=== PATIENT | female | born 1965 | race Caucasian/White ===

== ENCOUNTER 2016-05-24 21:44 | Inpatient (IN) | payer BC ==
[~2016-05-24] VITALS: Ht 149.9 cm; Wt 46.4 kg
[2016-05-24] MEDS ORDERED: OPTIRAY 350 100 ML VIAL HMH IV ONE (21:45)
[2016-05-25] VITALS (7 sets, daily range): BP systolic 102–125; RESP 14–26; TEMP 97.9–99; Ht 149.9 cm; Wt 46.4 kg
[2016-05-25] MEDS ORDERED: NEB-ALBUTEROL 2.5 MG/3 ML INH ONE (00:58)
[2016-05-25] MEDS ORDERED: DUONEB INH ONE ×3 (00:58→13:50)
[2016-05-25] MEDS ORDERED: ACETAMINOPHEN 325 MG TAB ONE (03:04)
[2016-05-25] MEDS ORDERED: AZITHROMYCIN 500 MG VIAL IV ONE (03:33)
[2016-05-25] MEDS ORDERED: SODIUM CHLORIDE 0.9% 500 ML IV ONE (03:34)
[2016-05-25] MEDS ORDERED: CEFTRIAXONE 1 GM VIAL ONE (03:34)
[2016-05-25] MEDS ORDERED: SALINE FLUSH 10 ML FLUSH PRN (03:50)
[2016-05-25] MEDS: DUONEB INH SCH ×4 (05:49→22:33)
[2016-05-25] MEDS ORDERED: METHYLPRED SOD SUCC 40 MG VIAL ONE (08:59)
[2016-05-25] MEDS ORDERED: ENOXAPARIN 60 MG/0.6 ML SYR SUBQ ONE (09:01)
[2016-05-25] MEDS: METHYLPRED SOD SUCC 40 MG VIAL IV SCH ×2 (11:17→14:38)
[2016-05-25] MEDS: ENOXAPARIN 40 MG/0.4 ML SYR SUBQ SCH (11:17)
[2016-05-25] MEDS ORDERED: ONDANSETRON 4 MG VIAL ONE (11:43)
[2016-05-25] MEDS: SALINE FLUSH 10 ML FLUSH SCH ×2 (11:46→19:51)
[2016-05-25] MEDS: SODIUM CHLORIDE 0.9% FLUSH BAG 500 ML IV SCH (13:56)
[2016-05-25] MEDS ORDERED: KETAMINE INJ 50 MG/ML VIAL IV ONE (14:11)
[2016-05-25] MEDS ORDERED: MIDAZOLAM 2 MG/2 ML INJ IV ONE (14:11)
[2016-05-25] MEDS ORDERED: LIDOCAINE 2% SYR 5 ML IV ONE (14:11)
[2016-05-25] MEDS ORDERED: PROPOFOL 50ML PER ML IV ONE (14:11)
[2016-05-25] MEDS: NICOTINE 21 MG/24 HR TRANSDERM SCH (14:38)
[2016-05-25] MEDS: GABAPENTIN 300 MG CAP PO SCH ×2 (14:39→21:27)
[2016-05-25] MEDS ORDERED: PNEUMO VAC 25 MCG/0.5 ML VL IM.VACC ONE (15:30)
[2016-05-25] MEDS: ONDANSETRON 4 MG VIAL IV PRN (19:50)
[2016-05-25] MEDS: PRAVASTATIN 20 MG TAB PO SCH (21:27)
[2016-05-25] MEDS: ALPRAZOLAM 1 MG TAB PO SCH (21:27)
[2016-05-25] MEDS: ATENOLOL 25 MG TAB PO SCH (21:27)
[2016-05-26] VITALS (7 sets, daily range): BP systolic 91–130; RESP 16–20; TEMP 98.2–99.3
[2016-05-26] MEDS: METHYLPRED SOD SUCC 40 MG VIAL IV SCH ×2 (00:33→08:41)
[2016-05-26] MEDS: ONDANSETRON 4 MG VIAL IV PRN (03:21)
[2016-05-26] MEDS: NEB-ALBUTEROL 2.5 MG/3 ML INH PRN (03:38)
[2016-05-26] MEDS: SODIUM CHLORIDE 0.9% FLUSH BAG 500 ML IV SCH (06:24)
[2016-05-26] MEDS: DUONEB INH SCH ×4 (07:08→22:52)
[2016-05-26] MEDS: NICOTINE 21 MG/24 HR TRANSDERM SCH (08:34)
[2016-05-26] MEDS: ATENOLOL 25 MG TAB PO SCH ×2 (08:37→21:07)
[2016-05-26] MEDS: ENOXAPARIN 40 MG/0.4 ML SYR SUBQ SCH (08:37)
[2016-05-26] MEDS: GABAPENTIN 300 MG CAP PO SCH ×3 (08:37→21:07)
[2016-05-26] MEDS: ALPRAZOLAM 1 MG TAB PO SCH ×2 (08:37→21:07)
[2016-05-26] MEDS: CEFTRIAXONE 1 GM in SODIUM CHLORIDE 0.9% 50 ML IV SCH (08:38)
[2016-05-26] MEDS: AZITHROMYCIN 250 MG in SODIUM CHLORIDE 0.9% 250 ML IV SCH (08:38)
[2016-05-26] MEDS: SALINE FLUSH 10 ML FLUSH SCH ×2 (08:39→21:07)
[2016-05-26] MEDS ORDERED: PREDNISONE 20 MG TAB PO ONE (11:45)
[2016-05-26] MEDS: NEB-BROVANA 15 MCG/2 ML INH SCH ×2 (12:46→19:05)
[2016-05-26] MEDS: NEB-BUDESONIDE 0.5 MG INH SCH ×2 (12:46→19:05)
[2016-05-26] MEDS: ACETAMINOPHEN 325 MG TAB PO PRN (14:21)
[2016-05-26] MEDS ORDERED: MISSING DOSE XX ONE ×2 (16:20→19:45)
[2016-05-26] MEDS: PRAVASTATIN 20 MG TAB PO SCH (21:06)
[2016-05-26] MEDS: FAMOTIDINE 20 MG TAB PO SCH (21:06)
[2016-05-27] VITALS (8 sets, daily range): BP systolic 96–143; RESP 16–20; TEMP 96.3–98.5
[2016-05-27] MEDS: DUONEB INH SCH ×4 (06:59→22:50)
[2016-05-27] MEDS: NEB-BROVANA 15 MCG/2 ML INH SCH ×2 (06:59→17:09)
[2016-05-27] MEDS: NEB-BUDESONIDE 0.5 MG INH SCH ×2 (06:59→17:09)
[2016-05-27] MEDS: SODIUM CHLORIDE 0.9% FLUSH BAG 500 ML IV SCH (07:21)
[2016-05-27] MEDS: FAMOTIDINE 20 MG TAB PO SCH ×2 (08:45→20:10)
[2016-05-27] MEDS: GABAPENTIN 300 MG CAP PO SCH ×3 (08:45→20:10)
[2016-05-27] MEDS: SALINE FLUSH 10 ML FLUSH SCH ×2 (08:45→20:11)
[2016-05-27] MEDS: PREDNISONE 20 MG TAB PO SCH (08:45)
[2016-05-27] MEDS: AZITHROMYCIN 250 MG in SODIUM CHLORIDE 0.9% 250 ML IV SCH (08:45)
[2016-05-27] MEDS: CEFTRIAXONE 1 GM in SODIUM CHLORIDE 0.9% 50 ML IV SCH (08:45)
[2016-05-27] MEDS: ALPRAZOLAM 1 MG TAB PO SCH ×2 (08:46→20:10)
[2016-05-27] MEDS: ENOXAPARIN 40 MG/0.4 ML SYR SUBQ SCH (08:46)
[2016-05-27] MEDS: ATENOLOL 25 MG TAB PO SCH ×2 (08:46→20:10)
[2016-05-27] MEDS: NICOTINE 21 MG/24 HR TRANSDERM SCH (08:49)
[2016-05-27] MEDS ORDERED: LOPERAMIDE 2 MG CAPSULE PO PRN (12:05)
[2016-05-27] MEDS: NEB-ALBUTEROL 2.5 MG/3 ML INH PRN (17:09)
[2016-05-27] MEDS: NEB-NACL 3% 4 ML NEBU INH SCH ×2 (17:09→22:49)
[2016-05-27] MEDS: KETOROLAC 15 MG/ML VIAL IV PRN (18:57)
[2016-05-27] MEDS: SACCHA BOULARDII 250MG CAP PO SCH (20:10)
[2016-05-27] MEDS: GUAIFENESIN ER 600 MG TABCR PO SCH (20:10)
[2016-05-27] MEDS: PRAVASTATIN 20 MG TAB PO SCH (20:10)
[2016-05-28 04:00] VITALS: BP_SYST 142; RESP 16; TEMP 97.7
[2016-05-28] MEDS: NEB-NACL 3% 4 ML NEBU INH SCH ×4 (06:18→22:25)
[2016-05-28] MEDS: DUONEB INH SCH ×5 (06:18→22:25)
[2016-05-28] MEDS: NEB-BUDESONIDE 0.5 MG INH SCH ×2 (06:18→19:50)
[2016-05-28] MEDS: NEB-BROVANA 15 MCG/2 ML INH SCH ×2 (06:18→19:50)
[2016-05-28] MEDS: SODIUM CHLORIDE 0.9% FLUSH BAG 500 ML IV SCH (06:24)
[2016-05-28] MEDS: ONDANSETRON 4 MG VIAL IV PRN (07:02)
[2016-05-28] MEDS: KETOROLAC 15 MG/ML VIAL IV PRN ×3 (07:04→20:11)
[2016-05-28 07:21] VITALS: BP_SYST 137; RESP 16; TEMP 98.2
[2016-05-28] MEDS ORDERED: MISSING DOSE XX ONE (08:20)
[2016-05-28] MEDS: NICOTINE 21 MG/24 HR TRANSDERM SCH (08:21)
[2016-05-28] MEDS: SACCHA BOULARDII 250MG CAP PO SCH ×2 (08:21→20:10)
[2016-05-28] MEDS: ALPRAZOLAM 1 MG TAB PO SCH ×2 (08:22→20:10)
[2016-05-28] MEDS: PREDNISONE 20 MG TAB PO SCH (08:22)
[2016-05-28] MEDS: ATENOLOL 25 MG TAB PO SCH ×2 (08:22→20:10)
[2016-05-28] MEDS: GABAPENTIN 300 MG CAP PO SCH ×3 (08:22→20:10)
[2016-05-28] MEDS: GUAIFENESIN ER 600 MG TABCR PO SCH ×2 (08:22→20:10)
[2016-05-28] MEDS: ENOXAPARIN 40 MG/0.4 ML SYR SUBQ SCH (08:23)
[2016-05-28] MEDS: SALINE FLUSH 10 ML FLUSH SCH ×2 (08:31→20:17)
[2016-05-28] MEDS: CEFTRIAXONE 1 GM in SODIUM CHLORIDE 0.9% 50 ML IV SCH (09:50)
[2016-05-28 11:06] VITALS: BP_SYST 122; RESP 16; TEMP 98.5
[2016-05-28 16:09] VITALS: BP_SYST 134; RESP 20; TEMP 97.9
[2016-05-28 19:27] VITALS: BP_SYST 125; RESP 16; TEMP 97.2
[2016-05-28] MEDS: FAMOTIDINE 20 MG TAB PO SCH (20:10)
[2016-05-28] MEDS: PRAVASTATIN 20 MG TAB PO SCH (20:10)
[2016-05-28 23:06] VITALS: BP_SYST 116; RESP 16; TEMP 98.6
[2016-05-29] VITALS (10 sets, daily range): BP systolic 122–145; RESP 12–20; TEMP 97.4–98.3
[2016-05-29] MEDS: KETOROLAC 15 MG/ML VIAL IV PRN ×4 (02:33→20:58)
[2016-05-29] MEDS: SODIUM CHLORIDE 0.9% FLUSH BAG 500 ML IV SCH (06:17)
[2016-05-29] MEDS: NEB-BROVANA 15 MCG/2 ML INH SCH ×2 (07:05→18:10)
[2016-05-29] MEDS: NEB-NACL 3% 4 ML NEBU INH SCH ×6 (07:05→22:30)
[2016-05-29] MEDS: NEB-BUDESONIDE 0.5 MG INH SCH ×2 (07:05→18:10)
[2016-05-29] MEDS: DUONEB INH SCH ×5 (07:05→22:29)
[2016-05-29] MEDS: SACCHA BOULARDII 250MG CAP PO SCH ×2 (08:34→20:57)
[2016-05-29] MEDS: ATENOLOL 25 MG TAB PO SCH ×2 (08:34→20:56)
[2016-05-29] MEDS: PREDNISONE 20 MG TAB PO SCH (08:34)
[2016-05-29] MEDS: GUAIFENESIN ER 600 MG TABCR PO SCH ×2 (08:34→20:56)
[2016-05-29] MEDS: GABAPENTIN 300 MG CAP PO SCH ×3 (08:34→20:56)
[2016-05-29] MEDS: SALINE FLUSH 10 ML FLUSH SCH ×2 (08:34→20:57)
[2016-05-29] MEDS: NICOTINE 21 MG/24 HR TRANSDERM SCH (08:35)
[2016-05-29] MEDS: ENOXAPARIN 40 MG/0.4 ML SYR SUBQ SCH (08:36)
[2016-05-29] MEDS: CEFTRIAXONE 1 GM in SODIUM CHLORIDE 0.9% 50 ML IV SCH (08:44)
[2016-05-29] MEDS: ALPRAZOLAM 1 MG TAB PO SCH ×2 (08:44→21:05)
[2016-05-29] MEDS: FAMOTIDINE 20 MG TAB PO SCH (20:56)
[2016-05-29] MEDS: PRAVASTATIN 20 MG TAB PO SCH (20:56)
[2016-05-30] VITALS (8 sets, daily range): BP systolic 122–156; RESP 12–20; TEMP 97.4–98.7
[2016-05-30] MEDS: KETOROLAC 15 MG/ML VIAL IV PRN ×3 (02:51→18:22)
[2016-05-30] MEDS: SODIUM CHLORIDE 0.9% FLUSH BAG 500 ML IV SCH (06:18)
[2016-05-30] MEDS: NEB-NACL 3% 4 ML NEBU INH SCH ×3 (06:30→18:58)
[2016-05-30] MEDS: NEB-BROVANA 15 MCG/2 ML INH SCH ×2 (08:04→18:58)
[2016-05-30] MEDS: NEB-BUDESONIDE 0.5 MG INH SCH ×2 (08:04→18:59)
[2016-05-30] MEDS: DUONEB INH SCH ×4 (08:05→18:59)
[2016-05-30] MEDS: ONDANSETRON 4 MG VIAL IV PRN (08:19)
[2016-05-30] MEDS: CEFTRIAXONE 1 GM in SODIUM CHLORIDE 0.9% 50 ML IV SCH (08:20)
[2016-05-30] MEDS: SACCHA BOULARDII 250MG CAP PO SCH ×2 (08:20→21:10)
[2016-05-30] MEDS: GABAPENTIN 300 MG CAP PO SCH ×3 (08:20→21:10)
[2016-05-30] MEDS: ALPRAZOLAM 1 MG TAB PO SCH ×2 (08:20→21:14)
[2016-05-30] MEDS: SALINE FLUSH 10 ML FLUSH SCH ×2 (08:20→21:15)
[2016-05-30] MEDS: ATENOLOL 25 MG TAB PO SCH ×2 (08:20→21:10)
[2016-05-30] MEDS: PREDNISONE 20 MG TAB PO SCH (08:21)
[2016-05-30] MEDS: GUAIFENESIN ER 600 MG TABCR PO SCH ×2 (08:21→21:10)
[2016-05-30] MEDS: ENOXAPARIN 40 MG/0.4 ML SYR SUBQ SCH (08:21)
[2016-05-30] MEDS: NICOTINE 21 MG/24 HR TRANSDERM SCH (08:22)
[2016-05-30] MEDS ORDERED: MISSING DOSE XX ONE ×2 (08:30→20:55)
[2016-05-30] MEDS ORDERED: NEB-NACL 3% 4 ML NEBU INH ONE (10:53)
[2016-05-30] MEDS ORDERED: METHYLPRED SOD SUCC 125 MG/2 ML VIAL IV ONE (13:40)
[2016-05-30] MEDS: ACETAMINOPHEN 325 MG TAB PO PRN (13:43)
[2016-05-30] MEDS: PRAVASTATIN 20 MG TAB PO SCH (21:10)
[2016-05-30] MEDS: FAMOTIDINE 20 MG TAB PO SCH (21:10)
[2016-05-30] MEDS: METHYLPRED SOD SUCC 125 MG/2 ML VIAL IV SCH (21:11)
[2016-05-31] VITALS (11 sets, daily range): BP systolic 134–160; RESP 16–20; TEMP 98.2–98.7
[2016-05-31] MEDS: DUONEB INH SCH ×6 (00:08→23:05)
[2016-05-31] MEDS: NEB-NACL 3% 4 ML NEBU INH SCH ×5 (00:08→23:05)
[2016-05-31] MEDS: KETOROLAC 15 MG/ML VIAL IV PRN ×4 (00:25→21:36)
[2016-05-31] MEDS: SODIUM CHLORIDE 0.9% FLUSH BAG 500 ML IV SCH (05:19)
[2016-05-31] MEDS ORDERED: MISSING DOSE XX ONE (07:40)
[2016-05-31] MEDS: ATENOLOL 25 MG TAB PO SCH ×2 (08:16→21:31)
[2016-05-31] MEDS: GUAIFENESIN ER 600 MG TABCR PO SCH ×2 (08:16→21:31)
[2016-05-31] MEDS: GABAPENTIN 300 MG CAP PO SCH ×3 (08:16→21:31)
[2016-05-31] MEDS: CEFTRIAXONE 1 GM in SODIUM CHLORIDE 0.9% 50 ML IV SCH (08:16)
[2016-05-31] MEDS: METHYLPRED SOD SUCC 125 MG/2 ML VIAL IV SCH ×2 (08:16→21:32)
[2016-05-31] MEDS: SACCHA BOULARDII 250MG CAP PO SCH ×2 (08:16→21:31)
[2016-05-31] MEDS: ENOXAPARIN 40 MG/0.4 ML SYR SUBQ SCH (08:17)
[2016-05-31] MEDS: NEB-BUDESONIDE 0.5 MG INH SCH ×2 (08:22→18:29)
[2016-05-31] MEDS: NEB-BROVANA 15 MCG/2 ML INH SCH ×2 (08:22→18:29)
[2016-05-31] MEDS: SALINE FLUSH 10 ML FLUSH SCH ×2 (08:27→21:32)
[2016-05-31] MEDS: ALPRAZOLAM 1 MG TAB PO SCH ×2 (08:27→21:31)
[2016-05-31] MEDS: NICOTINE 21 MG/24 HR TRANSDERM SCH (08:28)
[2016-05-31] MEDS: ACETAMINOPHEN 325 MG TAB PO PRN (13:39)
[2016-05-31] MEDS ORDERED: MORPHINE 2 MG/ML SYR IV PRN (14:55)
[2016-05-31] MEDS: NYSTATIN 500,000 UNITS/5 ML SUSP SWISH.SWAL SCH ×3 (16:15→21:32)
[2016-05-31] MEDS: PRAVASTATIN 20 MG TAB PO SCH (21:31)
[2016-05-31] MEDS: FAMOTIDINE 20 MG TAB PO SCH (21:32)
[2016-06-01 03:03] VITALS: BP_SYST 134; RESP 20; TEMP 98.7
[2016-06-01] MEDS: KETOROLAC 15 MG/ML VIAL IV PRN ×2 (03:41→14:04)
[2016-06-01] MEDS: SODIUM CHLORIDE 0.9% FLUSH BAG 500 ML IV SCH (05:22)
[2016-06-01] MEDS: NEB-BROVANA 15 MCG/2 ML INH SCH ×2 (06:10→19:13)
[2016-06-01] MEDS: NEB-NACL 3% 4 ML NEBU INH SCH ×4 (06:11→23:29)
[2016-06-01] MEDS: NEB-BUDESONIDE 0.5 MG INH SCH ×2 (06:11→19:13)
[2016-06-01] MEDS: DUONEB INH SCH ×5 (06:11→23:28)
[2016-06-01 07:15] VITALS: BP_SYST 150; RESP 20; TEMP 98.3
[2016-06-01] MEDS: METHYLPRED SOD SUCC 125 MG/2 ML VIAL IV SCH ×2 (08:12→20:10)
[2016-06-01] MEDS: SACCHA BOULARDII 250MG CAP PO SCH ×2 (08:15→20:12)
[2016-06-01] MEDS: GABAPENTIN 300 MG CAP PO SCH ×3 (08:15→20:11)
[2016-06-01] MEDS: GUAIFENESIN ER 600 MG TABCR PO SCH (08:15)
[2016-06-01] MEDS: ALPRAZOLAM 1 MG TAB PO SCH ×2 (08:15→20:12)
[2016-06-01] MEDS: ATENOLOL 25 MG TAB PO SCH ×2 (08:16→20:12)
[2016-06-01] MEDS: NICOTINE 21 MG/24 HR TRANSDERM SCH (08:18)
[2016-06-01] MEDS: SALINE FLUSH 10 ML FLUSH SCH ×2 (10:50→20:11)
[2016-06-01] MEDS: ENOXAPARIN 40 MG/0.4 ML SYR SUBQ SCH (10:50)
[2016-06-01] MEDS: NYSTATIN 500,000 UNITS/5 ML SUSP SWISH.SWAL SCH ×4 (10:51→20:11)
[2016-06-01 11:12] VITALS: BP_SYST 131; RESP 20; TEMP 98.3
[2016-06-01] MEDS ORDERED: MISSING DOSE XX ONE ×2 (12:55→18:05)
[2016-06-01 15:47] VITALS: BP_SYST 134; RESP 20; TEMP 98.6
[2016-06-01] MEDS: FLUCONAZOLE 150 MG TAB PO SCH (17:16)
[2016-06-01 20:06] VITALS: BP_SYST 153; RESP 18; TEMP 98.4
[2016-06-01] MEDS: PRAVASTATIN 20 MG TAB PO SCH (20:12)
[2016-06-01] MEDS: FAMOTIDINE 20 MG TAB PO SCH (20:12)
[2016-06-01 22:55] VITALS: BP_SYST 150; RESP 16; TEMP 97.9
[2016-06-02 02:54] VITALS: BP_SYST 151; RESP 16; TEMP 98.5
[2016-06-02] MEDS: SODIUM CHLORIDE 0.9% FLUSH BAG 500 ML IV SCH (06:13)
[2016-06-02] MEDS: NEB-BROVANA 15 MCG/2 ML INH SCH ×2 (06:32→18:25)
[2016-06-02] MEDS: DUONEB INH SCH ×5 (06:32→22:34)
[2016-06-02] MEDS: NEB-NACL 3% 4 ML NEBU INH SCH ×4 (06:33→22:34)
[2016-06-02] MEDS: NEB-BUDESONIDE 0.5 MG INH SCH ×2 (06:33→18:25)
[2016-06-02 07:17] VITALS: BP_SYST 152; RESP 18; TEMP 98.2
[2016-06-02] MEDS: NYSTATIN 500,000 UNITS/5 ML SUSP SWISH.SWAL SCH ×4 (08:20→21:19)
[2016-06-02] MEDS: ALPRAZOLAM 1 MG TAB PO SCH ×2 (08:20→21:19)
[2016-06-02] MEDS: GABAPENTIN 300 MG CAP PO SCH ×3 (08:20→21:19)
[2016-06-02] MEDS: METHYLPRED SOD SUCC 125 MG/2 ML VIAL IV SCH (08:20)
[2016-06-02] MEDS: SACCHA BOULARDII 250MG CAP PO SCH ×2 (08:20→21:19)
[2016-06-02] MEDS: ATENOLOL 25 MG TAB PO SCH ×2 (08:20→21:19)
[2016-06-02] MEDS: SALINE FLUSH 10 ML FLUSH SCH ×2 (08:21→21:21)
[2016-06-02] MEDS: FLUCONAZOLE 150 MG TAB PO SCH (08:22)
[2016-06-02] MEDS: NICOTINE 21 MG/24 HR TRANSDERM SCH (08:22)
[2016-06-02] MEDS: ENOXAPARIN 40 MG/0.4 ML SYR SUBQ SCH (08:22)
[2016-06-02 11:06] VITALS: BP_SYST 153; RESP 18; TEMP 98
[2016-06-02] MEDS: ACETAMINOPHEN 325 MG TAB PO PRN (14:06)
[2016-06-02 14:55] VITALS: BP_SYST 151; RESP 18; TEMP 97.9
[2016-06-02 19:22] VITALS: BP_SYST 156; RESP 17; TEMP 98.1
[2016-06-02] MEDS ORDERED: METHYLPRED SOD SUCC 125 MG/2 ML VIAL IV SCH (20:00)
[2016-06-02] MEDS: FAMOTIDINE 20 MG TAB PO SCH (21:19)
[2016-06-02] MEDS: PRAVASTATIN 20 MG TAB PO SCH (21:19)
[2016-06-02 22:41] VITALS: BP_SYST 156; RESP 17; TEMP 97.9
[2016-06-03] VITALS (10 sets, daily range): BP systolic 146–178; RESP 12–16; TEMP 97.7–98.3
[2016-06-03] MEDS: SODIUM CHLORIDE 0.9% FLUSH BAG 500 ML IV SCH (05:35)
[2016-06-03] MEDS: NEB-BUDESONIDE 0.5 MG INH SCH ×2 (06:55→19:47)
[2016-06-03] MEDS: NEB-BROVANA 15 MCG/2 ML INH SCH ×2 (06:55→19:47)
[2016-06-03] MEDS: DUONEB INH SCH ×5 (06:56→23:22)
[2016-06-03] MEDS: NEB-NACL 3% 4 ML NEBU INH SCH ×4 (06:56→23:22)
[2016-06-03] MEDS: SALINE FLUSH 10 ML FLUSH SCH ×2 (08:00→20:40)
[2016-06-03] MEDS: NICOTINE 21 MG/24 HR TRANSDERM SCH (08:17)
[2016-06-03] MEDS: NYSTATIN 500,000 UNITS/5 ML SUSP SWISH.SWAL SCH ×4 (08:17→20:39)
[2016-06-03] MEDS: GABAPENTIN 300 MG CAP PO SCH ×3 (08:18→20:39)
[2016-06-03] MEDS: ALPRAZOLAM 1 MG TAB PO SCH ×2 (08:18→20:39)
[2016-06-03] MEDS: SACCHA BOULARDII 250MG CAP PO SCH ×2 (08:18→20:39)
[2016-06-03] MEDS: FLUCONAZOLE 150 MG TAB PO SCH (08:18)
[2016-06-03] MEDS: ATENOLOL 25 MG TAB PO SCH ×2 (08:18→20:39)
[2016-06-03] MEDS: PREDNISONE 20 MG TAB PO SCH (08:18)
[2016-06-03] MEDS: ENOXAPARIN 40 MG/0.4 ML SYR SUBQ SCH (08:19)
[2016-06-03] MEDS ORDERED: PHARMACY TO DOSE LEVAQUIN IV SCH (12:55)
[2016-06-03] MEDS: LEVOFLOXACIN 750 MG/150 ML 150 ML IV SCH (14:32)
[2016-06-03] MEDS: PRAVASTATIN 20 MG TAB PO SCH (20:39)
[2016-06-03] MEDS: FAMOTIDINE 20 MG TAB PO SCH (20:39)
[2016-06-04] VITALS (7 sets, daily range): BP systolic 124–142; RESP 16–20; TEMP 97.2–98.5
[2016-06-04] MEDS: SODIUM CHLORIDE 0.9% FLUSH BAG 500 ML IV SCH (05:21)
[2016-06-04] MEDS: NEB-NACL 3% 4 ML NEBU INH SCH ×4 (06:32→22:42)
[2016-06-04] MEDS: NEB-BROVANA 15 MCG/2 ML INH SCH ×2 (06:32→19:03)
[2016-06-04] MEDS: NEB-BUDESONIDE 0.5 MG INH SCH ×2 (06:32→19:03)
[2016-06-04] MEDS: DUONEB INH SCH ×5 (06:32→22:42)
[2016-06-04] MEDS: NYSTATIN 500,000 UNITS/5 ML SUSP SWISH.SWAL SCH ×4 (08:42→21:00)
[2016-06-04] MEDS: FLUCONAZOLE 150 MG TAB PO SCH (08:43)
[2016-06-04] MEDS: LEVOFLOXACIN 750 MG/150 ML 150 ML IV SCH (08:43)
[2016-06-04] MEDS: SALINE FLUSH 10 ML FLUSH SCH ×2 (08:43→20:58)
[2016-06-04] MEDS: NICOTINE 21 MG/24 HR TRANSDERM SCH (08:43)
[2016-06-04] MEDS: PREDNISONE 20 MG TAB PO SCH (08:44)
[2016-06-04] MEDS: ALPRAZOLAM 1 MG TAB PO SCH (08:44)
[2016-06-04] MEDS: GABAPENTIN 300 MG CAP PO SCH ×3 (08:44→20:58)
[2016-06-04] MEDS: ATENOLOL 25 MG TAB PO SCH ×2 (08:44→20:58)
[2016-06-04] MEDS: ENOXAPARIN 40 MG/0.4 ML SYR SUBQ SCH (08:44)
[2016-06-04] MEDS: SACCHA BOULARDII 250MG CAP PO SCH ×2 (08:44→20:58)
[2016-06-04] MEDS: LORAZEPAM 2 MG/ML VIAL IV PRN ×2 (14:59→18:57)
[2016-06-04] MEDS: PRAVASTATIN 20 MG TAB PO SCH (20:58)
[2016-06-04] MEDS: FAMOTIDINE 20 MG TAB PO SCH (20:58)
[2016-06-05] VITALS (13 sets, daily range): BP systolic 90–148; RESP 16–21; TEMP 97.7–98.6
[2016-06-05] MEDS: LORAZEPAM 2 MG/ML VIAL IV PRN ×5 (04:09→21:30)
[2016-06-05] MEDS: NEB-BROVANA 15 MCG/2 ML INH SCH ×2 (06:36→19:00)
[2016-06-05] MEDS: DUONEB INH SCH ×5 (06:36→22:45)
[2016-06-05] MEDS: NEB-BUDESONIDE 0.5 MG INH SCH ×2 (06:36→19:00)
[2016-06-05] MEDS: NEB-NACL 3% 4 ML NEBU INH SCH ×4 (06:36→22:45)
[2016-06-05] MEDS: SODIUM CHLORIDE 0.9% FLUSH BAG 500 ML IV SCH (06:40)
[2016-06-05] MEDS: ATENOLOL 25 MG TAB PO SCH ×2 (07:32→21:29)
[2016-06-05] MEDS: NICOTINE 21 MG/24 HR TRANSDERM SCH (08:37)
[2016-06-05] MEDS: LEVOFLOXACIN 750 MG/150 ML 150 ML IV SCH (08:37)
[2016-06-05] MEDS: SALINE FLUSH 10 ML FLUSH SCH ×2 (08:38→21:31)
[2016-06-05] MEDS: SACCHA BOULARDII 250MG CAP PO SCH ×2 (09:00→21:29)
[2016-06-05] MEDS: GABAPENTIN 300 MG CAP PO SCH ×3 (09:00→21:29)
[2016-06-05] MEDS: NYSTATIN 500,000 UNITS/5 ML SUSP SWISH.SWAL SCH ×4 (09:00→21:31)
[2016-06-05] MEDS: ENOXAPARIN 40 MG/0.4 ML SYR SUBQ SCH (13:57)
[2016-06-05] MEDS: FLUCONAZOLE 150 MG TAB PO SCH (13:58)
[2016-06-05] MEDS: PREDNISONE 20 MG TAB PO SCH (13:59)
[2016-06-05] MEDS: FAMOTIDINE 20 MG TAB PO SCH (21:29)
[2016-06-05] MEDS: PRAVASTATIN 20 MG TAB PO SCH (21:29)
[2016-06-06] MEDS: LORAZEPAM 2 MG/ML VIAL IV PRN ×4 (01:50→14:53)
[2016-06-06 03:33] VITALS: BP_SYST 143; TEMP 97.7
[2016-06-06 03:34] VITALS: RESP 20
[2016-06-06] MEDS: SODIUM CHLORIDE 0.9% FLUSH BAG 500 ML IV SCH (05:53)
[2016-06-06 07:11] VITALS: BP_SYST 143; RESP 16; TEMP 98.1
[2016-06-06] MEDS: NEB-BROVANA 15 MCG/2 ML INH SCH (07:27)
[2016-06-06] MEDS: NEB-NACL 3% 4 ML NEBU INH SCH ×2 (07:27→11:11)
[2016-06-06] MEDS: DUONEB INH SCH ×3 (07:27→15:01)
[2016-06-06] MEDS: NEB-BUDESONIDE 0.5 MG INH SCH (07:27)
[2016-06-06] MEDS: ENOXAPARIN 40 MG/0.4 ML SYR SUBQ SCH (09:00)
[2016-06-06] MEDS: NICOTINE 21 MG/24 HR TRANSDERM SCH (09:02)
[2016-06-06] MEDS: PREDNISONE 20 MG TAB PO SCH (09:03)
[2016-06-06] MEDS: NYSTATIN 500,000 UNITS/5 ML SUSP SWISH.SWAL SCH ×2 (09:03→12:33)
[2016-06-06] MEDS: GABAPENTIN 300 MG CAP PO SCH ×2 (09:03→15:30)
[2016-06-06] MEDS: SACCHA BOULARDII 250MG CAP PO SCH (09:03)
[2016-06-06] MEDS: ATENOLOL 25 MG TAB PO SCH (09:03)
[2016-06-06] MEDS: FLUCONAZOLE 150 MG TAB PO SCH (09:03)
[2016-06-06] MEDS: SALINE FLUSH 10 ML FLUSH SCH (09:04)
[2016-06-06] MEDS: LEVOFLOXACIN 750 MG/150 ML 150 ML IV SCH (09:19)
[2016-06-06 11:00] VITALS: BP_SYST 125; RESP 18; TEMP 98.3
[2016-06-06] MEDS ORDERED: MISSING DOSE XX ONE (12:30)
[2016-06-06 15:02] VITALS: BP_SYST 125; BP_SYST 127; RESP 18; TEMP 97.3; TEMP 98.3
[2016-06-07] MEDS ORDERED: LEVOFLOXACIN 750 MG TAB PO SCH (09:00)
[2016-06-07] MEDS ORDERED: PREDNISONE 50 MG TAB PO SCH (09:00)
== END 2016-06-06 15:44 | disposition home or self-care (01) | DRG 189 ==
LOC: ENRESERVDT → ENRESERVTM → ER 21:44 → EMR 05-25 03:49 → ENPENDDIS 05-25 03:49 → PCU2 05-25 13:54 → 3NT 05-26 16:25
PROVIDERS: ADMIT Internal Medicine; ATTEND Internal Medicine
PROC: 0B968ZX Drainage of Right Lower Lobe Bronchus, Via Natural or Artificial Opening Endoscopic, Diagnostic (ICD-10-PCS; principal; 2016-06-05 11:30)
DX: J96.01 Acute respiratory failure with hypoxia (principal); J18.9 Pneumonia, unspecified organism; J44.0 Chronic obstructive pulmonary disease with (acute) lower respiratory infection; J44.1 Chronic obstructive pulmonary disease with (acute) exacerbation; I47.1 Supraventricular tachycardia; K52.1 Toxic gastroenteritis and colitis; F17.210 Nicotine dependence, cigarettes, uncomplicated; E78.5 Hyperlipidemia, unspecified; I10 Essential (primary) hypertension; F41.9 Anxiety disorder, unspecified; T36.95XA Adverse effect of unspecified systemic antibiotic, initial encounter; G89.4 Chronic pain syndrome; K21.9 Gastro-esophageal reflux disease without esophagitis
CPT/HCPCS: 36415; 71010; 71260; 80048; 80053; 82553; 82785; 83880; 84484; 85025; 86738; 87071; 87102; 87116; 87205; 87206; 87278; 87299; 87493; 87496; 87529; 87633; 87798; 87804; 88108; 89051; 90732; 93005; 94640; 94799; 96365; 96367; 96375; 99222; 99223; 99232; 99233; 99238

== ENCOUNTER 2016-06-22 11:23 | Inpatient (IN) | payer BC ==
[~2016-06-22] VITALS: Ht 149.9 cm; Wt 46.2 kg
[2016-06-22] MEDS ORDERED: METHYLPRED SOD SUCC 125 MG/2 ML VIAL ONE (12:36)
[2016-06-22] MEDS ORDERED: DUONEB INH ONE ×2 (13:13)
[2016-06-22] MEDS ORDERED: SODIUM CHLORIDE 0.9% 2,000 ML ONE (13:18)
[2016-06-22] MEDS ORDERED: PIPER/TAZO 3.375 GM PYXIS ONE (14:35)
[2016-06-22] MEDS ORDERED: SODIUM CHLORIDE 0.9% 250 ML IV ONE (14:37)
[2016-06-22] MEDS ORDERED: LINEZOLID 600 MG/300 ML 300 ML IV ONE (15:00)
[2016-06-22] MEDS ORDERED: AZITHROMYCIN 500 MG in SODIUM CHLORIDE 0.9% 250 ML IV ONE (15:20)
[2016-06-22] MEDS ORDERED: SALINE FLUSH 10 ML FLUSH PRN (15:20)
[2016-06-22] MEDS ORDERED: NEB-ALBUTEROL 2.5 MG/3 ML INH PRN (15:20)
[2016-06-22 17:52] VITALS: BP_SYST 148; TEMP 98.6
[2016-06-22 17:53] VITALS: RESP 20; Ht 149.9 cm; Wt 46.2 kg
[2016-06-22] MEDS ORDERED: [UNRECOGNIZED DRUG - REMARK] XX SCH (17:54)
[2016-06-22] MEDS: NEB-BUDESONIDE 0.5 MG INH SCH (18:54)
[2016-06-22] MEDS: NEB-BROVANA 15 MCG/2 ML INH SCH (18:55)
[2016-06-22] MEDS: DUONEB INH SCH ×2 (18:55→23:01)
[2016-06-22] MEDS: ENOXAPARIN 40 MG/0.4 ML SYR SUBQ SCH (18:59)
[2016-06-22 19:05] VITALS: RESP 20
[2016-06-22] MEDS: SALINE FLUSH 10 ML FLUSH SCH (20:00)
[2016-06-22] MEDS: GUAIFENESIN ER 600 MG TABCR PO SCH (20:44)
[2016-06-22 22:12] VITALS: BP_SYST 141; RESP 20; TEMP 98.1
[2016-06-22] MEDS ORDERED: ALPRAZOLAM 0.25 MG TAB PO ONE (22:50)
[2016-06-22] MEDS ORDERED: GABAPENTIN 300 MG CAP PO ONE (22:50)
[2016-06-22 23:12] VITALS: BP_SYST 104; RESP 18; TEMP 97.2
[2016-06-23 03:14] VITALS: BP_SYST 113; RESP 22; TEMP 98.4
[2016-06-23] MEDS: NEB-BUDESONIDE 0.5 MG INH SCH ×2 (06:40→19:42)
[2016-06-23] MEDS: NEB-BROVANA 15 MCG/2 ML INH SCH ×2 (06:40→19:42)
[2016-06-23] MEDS: DUONEB INH SCH ×4 (06:40→23:11)
[2016-06-23] MEDS: SODIUM CHLORIDE 0.9% FLUSH BAG 500 ML IV SCH (06:48)
[2016-06-23 07:42] VITALS: BP_SYST 128; RESP 20; TEMP 99.2
[2016-06-23] MEDS ORDERED: KCL CR 20 MEQ TAB PO ONE (08:15)
[2016-06-23] MEDS: SALINE FLUSH 10 ML FLUSH SCH ×2 (09:03→21:35)
[2016-06-23] MEDS: PANTOPRAZOLE 40 MG TAB PO SCH (09:04)
[2016-06-23] MEDS: ALPRAZOLAM 1 MG TAB PO SCH ×2 (09:05→21:34)
[2016-06-23] MEDS: GUAIFENESIN ER 600 MG TABCR PO SCH ×2 (09:05→21:34)
[2016-06-23] MEDS: PREDNISONE 20 MG TAB PO SCH (09:05)
[2016-06-23] MEDS: GABAPENTIN 300 MG CAP PO SCH ×3 (09:05→21:34)
[2016-06-23] MEDS: Estradiol 1 MG TAB PO SCH (09:05)
[2016-06-23] MEDS: ACETAMINOPHEN 325 MG TAB PO PRN ×2 (09:06→21:35)
[2016-06-23] MEDS: AZITHROMYCIN 250 MG TAB PO SCH (09:06)
[2016-06-23] MEDS: ENOXAPARIN 40 MG/0.4 ML SYR SUBQ SCH (09:07)
[2016-06-23 11:51] VITALS: BP_SYST 123; RESP 18; TEMP 98.8
[2016-06-23 15:32] VITALS: BP_SYST 118; RESP 18; TEMP 98.3
[2016-06-23 19:37] VITALS: BP_SYST 119; RESP 20; TEMP 98.5
[2016-06-23] MEDS: PRAVASTATIN 40 MG TAB PO SCH (21:34)
[2016-06-23 22:57] VITALS: BP_SYST 103; RESP 20; TEMP 99.2
[2016-06-24] VITALS (8 sets, daily range): BP systolic 112–135; RESP 20; TEMP 97.6–98.6
[2016-06-24] MEDS: SODIUM CHLORIDE 0.9% FLUSH BAG 500 ML IV SCH (05:41)
[2016-06-24] MEDS: DUONEB INH SCH ×5 (07:17→23:44)
[2016-06-24] MEDS: NEB-BROVANA 15 MCG/2 ML INH SCH ×2 (07:17→19:41)
[2016-06-24] MEDS: NEB-BUDESONIDE 0.5 MG INH SCH ×2 (07:17→19:41)
[2016-06-24] MEDS: PANTOPRAZOLE 40 MG TAB PO SCH (07:33)
[2016-06-24] MEDS: AZITHROMYCIN 250 MG TAB PO SCH (08:57)
[2016-06-24] MEDS: PREDNISONE 20 MG TAB PO SCH (08:57)
[2016-06-24] MEDS: GABAPENTIN 300 MG CAP PO SCH ×3 (08:57→20:21)
[2016-06-24] MEDS: Estradiol 1 MG TAB PO SCH (08:57)
[2016-06-24] MEDS: ALPRAZOLAM 1 MG TAB PO SCH ×2 (08:57→20:21)
[2016-06-24] MEDS: SALINE FLUSH 10 ML FLUSH SCH ×2 (08:58→20:21)
[2016-06-24] MEDS: ENOXAPARIN 40 MG/0.4 ML SYR SUBQ SCH (08:58)
[2016-06-24] MEDS: GUAIFENESIN ER 600 MG TABCR PO SCH (09:00)
[2016-06-24] MEDS: NEB-NACL 3% 4 ML NEBU INH SCH ×3 (11:21→23:44)
[2016-06-24] MEDS: Furosemide 20 MG TAB PO SCH (15:47)
[2016-06-24] MEDS: Ibuprofen 800 MG TAB PO PRN (15:48)
[2016-06-24] MEDS: CEFTRIAXONE 1 GM in SODIUM CHLORIDE 0.9% 50 ML IV SCH (20:21)
[2016-06-24] MEDS: PRAVASTATIN 40 MG TAB PO SCH (20:21)
[2016-06-25] VITALS (7 sets, daily range): BP systolic 110–129; RESP 18–20; TEMP 97.8–98.7
[2016-06-25] MEDS: PANTOPRAZOLE 40 MG TAB PO SCH (06:44)
[2016-06-25] MEDS: SODIUM CHLORIDE 0.9% FLUSH BAG 500 ML IV SCH (06:45)
[2016-06-25] MEDS: DUONEB INH SCH ×5 (07:39→22:38)
[2016-06-25] MEDS: NEB-BUDESONIDE 0.5 MG INH SCH ×2 (07:39→19:16)
[2016-06-25] MEDS: NEB-BROVANA 15 MCG/2 ML INH SCH ×2 (07:39→19:16)
[2016-06-25] MEDS: NEB-NACL 3% 4 ML NEBU INH SCH ×4 (07:39→22:37)
[2016-06-25] MEDS: SALINE FLUSH 10 ML FLUSH SCH ×2 (08:13→20:26)
[2016-06-25] MEDS: CEFTRIAXONE 1 GM in SODIUM CHLORIDE 0.9% 50 ML IV SCH ×2 (08:13→20:24)
[2016-06-25] MEDS: ALPRAZOLAM 1 MG TAB PO SCH ×2 (08:13→20:23)
[2016-06-25] MEDS: PREDNISONE 20 MG TAB PO SCH (08:14)
[2016-06-25] MEDS: AZITHROMYCIN 250 MG TAB PO SCH (08:14)
[2016-06-25] MEDS: Furosemide 20 MG TAB PO SCH (08:14)
[2016-06-25] MEDS: Estradiol 1 MG TAB PO SCH (08:14)
[2016-06-25] MEDS: ENOXAPARIN 40 MG/0.4 ML SYR SUBQ SCH (08:14)
[2016-06-25] MEDS: GABAPENTIN 300 MG CAP PO SCH ×3 (08:14→20:23)
[2016-06-25] MEDS: Ibuprofen 800 MG TAB PO PRN (11:54)
[2016-06-25] MEDS: ACETAMINOPHEN 325 MG TAB PO PRN (13:55)
[2016-06-25] MEDS ORDERED: MISSING DOSE XX ONE (19:15)
[2016-06-25] MEDS: PRAVASTATIN 40 MG TAB PO SCH (20:23)
[2016-06-25] MEDS: ONDANSETRON 4 MG VIAL IV PRN (22:46)
[2016-06-26] MEDS ORDERED: MISSING DOSE XX ONE (02:15)
[2016-06-26] MEDS: Ibuprofen 800 MG TAB PO PRN (02:48)
[2016-06-26 04:44] VITALS: BP_SYST 121; RESP 12; TEMP 98.4
[2016-06-26] MEDS: ACETAMINOPHEN 325 MG TAB PO PRN (04:51)
[2016-06-26] MEDS: PANTOPRAZOLE 40 MG TAB PO SCH (06:25)
[2016-06-26] MEDS: SODIUM CHLORIDE 0.9% FLUSH BAG 500 ML IV SCH (06:25)
[2016-06-26] MEDS: DUONEB INH SCH ×5 (07:05→22:40)
[2016-06-26] MEDS: NEB-NACL 3% 4 ML NEBU INH SCH ×4 (07:06→22:40)
[2016-06-26] MEDS: NEB-BUDESONIDE 0.5 MG INH SCH ×2 (07:06→19:37)
[2016-06-26] MEDS: NEB-BROVANA 15 MCG/2 ML INH SCH ×2 (07:06→19:37)
[2016-06-26 07:56] VITALS: BP_SYST 109; RESP 20; TEMP 98.3
[2016-06-26] MEDS: Estradiol 1 MG TAB PO SCH (08:23)
[2016-06-26] MEDS: SALINE FLUSH 10 ML FLUSH SCH ×2 (08:23→21:17)
[2016-06-26] MEDS: ALPRAZOLAM 1 MG TAB PO SCH ×2 (08:23→21:17)
[2016-06-26] MEDS: CEFTRIAXONE 1 GM in SODIUM CHLORIDE 0.9% 50 ML IV SCH ×2 (08:23→21:17)
[2016-06-26] MEDS: GABAPENTIN 300 MG CAP PO SCH ×3 (08:24→21:17)
[2016-06-26] MEDS: PREDNISONE 20 MG TAB PO SCH (08:24)
[2016-06-26] MEDS: Furosemide 20 MG TAB PO SCH (08:24)
[2016-06-26] MEDS: AZITHROMYCIN 250 MG TAB PO SCH (08:24)
[2016-06-26] MEDS: ENOXAPARIN 40 MG/0.4 ML SYR SUBQ SCH (08:25)
[2016-06-26] MEDS: ONDANSETRON 4 MG VIAL IV PRN ×2 (08:41→21:25)
[2016-06-26 11:14] VITALS: BP_SYST 102; RESP 20; TEMP 98.2
[2016-06-26 15:50] VITALS: BP_SYST 122; RESP 20; TEMP 98.4
[2016-06-26 19:28] VITALS: BP_SYST 123; RESP 20; TEMP 98.3
[2016-06-26] MEDS: PRAVASTATIN 40 MG TAB PO SCH (21:17)
[2016-06-26 23:08] VITALS: BP_SYST 128; RESP 18; TEMP 97.5
[2016-06-27 03:14] VITALS: BP_SYST 124; RESP 16; TEMP 97.6
[2016-06-27] MEDS: PANTOPRAZOLE 40 MG TAB PO SCH (06:16)
[2016-06-27] MEDS: SODIUM CHLORIDE 0.9% FLUSH BAG 500 ML IV SCH (06:17)
[2016-06-27 07:28] VITALS: BP_SYST 139
[2016-06-27] MEDS: NEB-BUDESONIDE 0.5 MG INH SCH (07:28)
[2016-06-27] MEDS: DUONEB INH SCH ×2 (07:28→10:56)
[2016-06-27] MEDS: NEB-BROVANA 15 MCG/2 ML INH SCH (07:28)
[2016-06-27] MEDS: NEB-NACL 3% 4 ML NEBU INH SCH ×2 (07:28→10:56)
[2016-06-27 07:29] VITALS: RESP 16; TEMP 98.5
[2016-06-27] MEDS: SALINE FLUSH 10 ML FLUSH SCH (08:24)
[2016-06-27] MEDS: CEFTRIAXONE 1 GM in SODIUM CHLORIDE 0.9% 50 ML IV SCH (08:24)
[2016-06-27] MEDS: ENOXAPARIN 40 MG/0.4 ML SYR SUBQ SCH (08:25)
[2016-06-27] MEDS: PREDNISONE 20 MG TAB PO SCH (08:25)
[2016-06-27] MEDS: GABAPENTIN 300 MG CAP PO SCH (08:25)
[2016-06-27] MEDS: ALPRAZOLAM 1 MG TAB PO SCH (08:25)
[2016-06-27] MEDS: Furosemide 20 MG TAB PO SCH (08:25)
[2016-06-27] MEDS: Estradiol 1 MG TAB PO SCH (08:26)
[2016-06-27 11:37] VITALS: BP_SYST 117; TEMP 98.7
[2016-06-27 11:38] VITALS: RESP 16
[2016-06-27 12:28] VITALS: BP_SYST 117; RESP 16; TEMP 98.7
== END 2016-06-27 14:55 | disposition home or self-care (01) | DRG 189 ==
LOC: ENRESERVTM → ENRESERVDT → ER 11:23 → ENPENDDIS 16:01 → EMR 16:01 → 3NT 17:42
PROVIDERS: ADMIT Internal Medicine; ATTEND Internal Medicine
DX: J96.01 Acute respiratory failure with hypoxia (principal); J18.9 Pneumonia, unspecified organism; I11.0 Hypertensive heart disease with heart failure; J44.0 Chronic obstructive pulmonary disease with (acute) lower respiratory infection; I50.30 Unspecified diastolic (congestive) heart failure; J44.1 Chronic obstructive pulmonary disease with (acute) exacerbation; E78.5 Hyperlipidemia, unspecified; F41.9 Anxiety disorder, unspecified; E87.6 Hypokalemia; G89.4 Chronic pain syndrome; Z85.828 Personal history of other malignant neoplasm of skin; F17.210 Nicotine dependence, cigarettes, uncomplicated; Z79.51 Long term (current) use of inhaled steroids
CPT/HCPCS: 36415; 71010; 71250; 80048; 80053; 81001; 82553; 83605; 83880; 84484; 85025; 86603; 86631; 86632; 86701; 86713; 86738; 87040; 87278; 87299; 87804; 87880; 93005; 93306; 94640; 94664; 94799; 96361; 96365; 96366; 96375; 99223; 99232; 99233; 99238